=== PATIENT | female | born 1960 | race Caucasian/White ===

== ENCOUNTER → 2018-12-17 | Outpatient (CLI) | payer BC ==
[~2018-12-17] MED LIST: CELEXA40 MG PO; LISINOPRIL AND1 TA1 PO; LISINOPRIL AND1 TA2 PO; PRILOSEC 20MG20 MG PO; SYNTHROID0.125 MG/T PO; ZYRTEC1 MG/ML PO
== END ==
LOC: MC.RAD 11-13 11:00
DX: Z12.31 Encounter for screening mammogram for malignant neoplasm of breast (principal)

== ENCOUNTER → 2019-07-14 | Outpatient (CLI) | payer BC ==
[~2019-07-14] VITALS: Ht 162.6 cm; Wt 74.4 kg
[~2019-07-14] MED LIST changes: +LIPITOR20 MG PO; +SYNTHROID0.1 MG/TAB PO; +XANAX .25M0.25 MG/TA PO; +ZESTORETIC 12.51 TAB PO; +ZYRTEC 10MG10 MG PO; -ZYRTEC1 MG/ML PO
[2019-07-14 12:06] VITALS: BP 116/72; PULSE 86
[2019-07-14 13:20] VITALS: BP 112/67; PULSE 94
== END ==
LOC: COL.RAD 11:48
DX: K76.9 Liver disease, unspecified (principal); R59.0 Localized enlarged lymph nodes
CPT/HCPCS: 32108

== ENCOUNTER → 2019-07-27 | Outpatient (CLI) | payer BC | LOC: COL.VAS 07:45 | DX: C81.01 Nodular lymphocyte predominant Hodgkin lymphoma, lymph nodes of head, face, and neck (principal) ==

== ENCOUNTER 2019-08-11 23:12 | Emergency (ER) | payer BC ==
[~2019-08-11] VITALS: Ht 162.6 cm; Wt 76.4 kg
[2019-08-11 23:27] VITALS: TEMP 98.3
[2019-08-12] MEDS ORDERED: PRINZIDE 12.5 M1 TAB PO (00:01)
[2019-08-12] MEDS ORDERED: ZYLOPRIM 300MG300 MG PO (00:01)
[2019-08-12] MEDS ORDERED: CLARITIN 1010 MG/TAB PO (00:01)
[2019-08-12 00:04] LABS: ALBUMIN 3.3 gm/dL (3.5-5.0); BILIRUBIN,TOTAL 0.8 mg/dL (0.0-1.0); C-REACTIVE PROTEIN 4.5 mg/dL (0.0-0.9); CALCIUM 10.1 mg/dL (8.4-10.2); CREATININE, serum 1.02 (0.52-1.25); HEMOGLOBIN 11.1 g/dl (12.5-16.0); MAGNESIUM 1.8 mg/dL (1.6-2.3); MEAN CELL VOLUME 87 fl (80.0-100.0); MEAN CORPUSCULAR HEMOGLOBIN 28 pg (27.0-31.0); MEAN CORPUSCULAR HGB CONC 32 g/dl (33.0-37.0); MEAN PLATELET VOLUME 10.7 fl (7.4-10.4); PHOSPHOROUS 2.1 mg/dL (2.5-4.5); PLATELET COUNT 127 K/mm3 (130-400); RED BLOOD COUNT 3.97 M/mm3 (4.10-5.30); REDCELL DISTRIBUTION WIDTH-CV 14.7 % (11.5-14.5); TOTAL PROTEIN 6.2 gm/dL (6.4-8.2)
[2019-08-12 00:13] LABS: HEMATOCRIT 34.5 % (37.0-47.0)
[2019-08-12 01:02] LABS: BASOPHIL 5 % (0-2); EOSINOPHIL 10 % (0-4); HYPOCHROMIA 1+; LYMPHOCYTE 25 % (20.0-51.0); NEUTROPHILS 55 % (42.0-75.2); PLATELET ESTIMATE DECREASED (NORMAL)
[2019-08-12 02:30] LABS: COLLECTION METHOD CLEAN CATCH
[2019-08-12 02:36] LABS: MUCOUS Present /lpf; PH 7 (5-8); SQUAMOUS EPITHELIAL 0-2 /hpf; URINE APPEARANCE Clear; URINE BACTERIA None Seen /hpf; URINE BILIRUBIN Negative (NEGATIVE); URINE BLOOD Negative (NEGATIVE); URINE COLOR Yellow; URINE GLUCOSE Negative (NEGATIVE); URINE KETONE Negative (NEGATIVE); URINE LEUKOCYTE ESTERASE Negative (NEGATIVE); URINE NITRATE Negative (NEGATIVE); URINE PROTEIN(semi-quant) Negative (NEGATIVE); URINE RBC 0-2 /hpf; URINE UROBILINOGEN Negative (NEGATIVE)
[2019-08-12] MEDS ORDERED: ZOFRAN 4MG T4 MG/TAB PO (03:23)
[2019-08-12 03:56] VITALS: BP 114/70; PULSE 86
== END 2019-08-12 04:05 | disposition home or self-care (01) ==
LOC: COL.ER 23:12
PROVIDERS: Emergency Medicine
DX: E86.0 Dehydration (principal); R19.7 Diarrhea, unspecified; R10.84 Generalized abdominal pain; D72.819 Decreased white blood cell count, unspecified; Z85.71 Personal history of Hodgkin lymphoma
CPT/HCPCS: J1644; J2405; J3010; J7030; Q9967

== ENCOUNTER 2019-08-12 14:22 | Inpatient (IN) | payer BC ==
[~2019-08-12] VITALS: Ht 162.6 cm; Wt 73.8 kg
[~2019-08-12 14:22] MED LIST changes: +CLARITIN 1010 MG/TAB PO; +PRINZIDE 12.5 M1 TAB PO; +ZOFRAN 4MG T4 MG/TAB PO; +ZYLOPRIM 300MG300 MG PO
[2019-08-12 15:05] LABS: MEAN CELL VOLUME 87 fl (80.0-100.0); MEAN CORPUSCULAR HGB CONC 33 g/dl (33.0-37.0); MEAN PLATELET VOLUME 10.5 fl (7.4-10.4); PLATELET COUNT 117 K/mm3 (130-400); RED BLOOD COUNT 3.49 M/mm3 (4.10-5.30); REDCELL DISTRIBUTION WIDTH-CV 14.6 % (11.5-14.5)
[2019-08-12 15:08] LABS: HEMATOCRIT 30.2 % (37.0-47.0); HEMOGLOBIN 9.8 g/dl (12.5-16.0); MEAN CORPUSCULAR HEMOGLOBIN 28 pg (27.0-31.0)
[2019-08-12 15:13] LABS: ALBUMIN 3.1 gm/dL (3.5-5.0); C-REACTIVE PROTEIN 5.8 mg/dL (0.0-0.9); CREATININE, serum 0.91 (0.52-1.25); TOTAL PROTEIN 5.8 gm/dL (6.4-8.2)
[2019-08-12 15:48] LABS: EOSINOPHIL 4 % (0-4); LYMPHOCYTE 64 % (20.0-51.0); NEUTROPHILS 24 % (42.0-75.2); PLATELET ESTIMATE NORMAL (NORMAL)
[2019-08-12 18:20] VITALS: BP 99/50; PULSE 100; TEMP 99.7
--- NOTE | 2019-08-12 18:22 | NUR ---
Vancomycin Initial Dosing Pharmacy Note Ordering provider: Natalia Morillo MD Indication/duration: Neutropenic Fever Relevant comorbidities: LABS: 0.91, est Crcl of 60 mL/min Recommendation: 1.25 g IV q12h Loading dose: 1.5 grams Maintenance dose: 1.25 grams every 12 hours Trough goal: 15-20 ug/mL
--- NOTE | 2019-08-12 19:34 | NUR ---
Patient arrived to room from ER, is resting in bed, is wearing mask. Cart placed outside door for neutropenic precautions. Patient expresses she is tired. She has ordered tray with broth and saltines. Did let patient know we had other snacks, food or juices available if she felt like having anything else. Does have some abdominal cramping. Did pass gas and stated that helped some. Was assisted to restroom and walked slowly and steady, does state she frequently gets dizzy and agreed to call for assistance when getting up. Did call for medication for her nausea, order placed for EKG prior to med order.
[2019-08-12 19:46] VITALS: BP 118/55; PULSE 114; TEMP 103
--- NOTE | 2019-08-12 20:30 | NUR ---
Initial shift assessment done- resting, family at bedside, will give Tylenol for temp 103 , IV fluids of NS at 150cc/hr, will call for assistance to bathroom
[2019-08-13 00:47] VITALS: BP 108/50; PULSE 115; TEMP 103
[2019-08-13 01:21] LABS: COLLECTION METHOD CLEAN CATCH
[2019-08-13 01:26] LABS: MUCOUS Present /lpf; PH 5 (5-8); SQUAMOUS EPITHELIAL 0-2 /hpf; URINE APPEARANCE Clear; URINE BACTERIA None Seen /hpf; URINE BILIRUBIN Negative (NEGATIVE); URINE BLOOD Negative (NEGATIVE); URINE COLOR Yellow; URINE GLUCOSE 1+ (NEGATIVE); URINE KETONE Negative (NEGATIVE); URINE LEUKOCYTE ESTERASE Negative (NEGATIVE); URINE NITRATE Negative (NEGATIVE); URINE PROTEIN(semi-quant) Negative (NEGATIVE); URINE RBC 0-2 /hpf; URINE UROBILINOGEN Negative (NEGATIVE)
[2019-08-13 03:35] VITALS: BP 132/64; PULSE 96; TEMP 100.7
[2019-08-13 04:46] LABS: MEAN CELL VOLUME 86 fl (80.0-100.0); MEAN CORPUSCULAR HGB CONC 33 g/dl (33.0-37.0); MEAN PLATELET VOLUME 9.9 fl (7.4-10.4); PLATELET COUNT 98 K/mm3 (130-400); RED BLOOD COUNT 2.99 M/mm3 (4.10-5.30); REDCELL DISTRIBUTION WIDTH-CV 14.4 % (11.5-14.5)
[2019-08-13 04:50] LABS: CALCIUM 8.3 mg/dL (8.4-10.2); CREATININE, serum 0.81 (0.52-1.25); POTASSIUM 3.4 mmol/L (3.4-5.0)
[2019-08-13 05:03] LABS: HEMATOCRIT 25.6 % (37.0-47.0); HEMOGLOBIN 8.5 g/dl (12.5-16.0); MEAN CORPUSCULAR HEMOGLOBIN 28 pg (27.0-31.0)
[2019-08-13 05:26] LABS: BAND 12 % (0-10); EOSINOPHIL 6 % (0-4); LYMPHOCYTE 70 % (20.0-51.0); MICROCYTOSIS 1+; NEUTROPHILS 8 % (42.0-75.2); PLATELET ESTIMATE DECREASED (NORMAL)
--- NOTE | 2019-08-13 06:00 | NUR ---
Did not sleep last night- was up numerous,numerous times to the bathroom, having liquid green stool-did get specimen down to lab- GI panel all negative-was able to get immodium ordered for patient--pt states that did help the cramping ,, had fever 103 during the night- was given tylenol 650mg x2 during the shift- temp down to 100.7
[2019-08-13 07:20] VITALS: BP 114/63; PULSE 111; TEMP 102.7
--- NOTE | 2019-08-13 08:49 | NUR ---
Assessment completed, alert/oriented, vital signs stable/ still running intermittent fevers, reports abd cramping and tenderness, abdomen is soft and BS+, patient having frequent diarrhea through the night / c-diff negative/ started on Immodium and I have given a dose this morning, reports some nausea but no vomitting thus far, WBC 0.2 this morning/ Onc consulted and they have been by to eval patient/ Granix injection ordered and given, patient is on IV abx as well and in neutropenic p/c, lungs CTA/ no resp.difficulty noted, denies productive cough, heart RRR/distal pulses are palpable, we are replacing potassium per prtocol, patient overall is still feeling very poorly, her in present in the room, they deny othe needs at this time , we will continue to monitor
--- NOTE | 2019-08-13 11:38 | NUR ---
Initial visit attempt; Patient resting throughout the morning, Tobacco Stemmer left card letting her know of the availability of spiritual care at our hospital.
[2019-08-13 13:43] VITALS: BP 105/54; PULSE 111; TEMP 102.2
--- NOTE | 2019-08-13 14:20 | NUR ---
Plan is to return home. SW met with patient about DC plan. Patient gave permission to speak in front of ex-bf about care. Patient reports that she lives locally with her children. Patient reports that her ex-bf Sahil is his POA and EMR contact . Patient reports that she is having concerns about fainting and not being able to breath. Patient reports that her PCP is Dr. Bond with no upcoming apps. Patient idnciated that she does not use any DME's. Patient reports that her ex will transport home. Patient reports that she obtains her RX from [facility] without difficulty. Action: SW educated patient on Home health care services. Patient stated to let her think about it. Patient was educated on community resources also. Notified nursing staff of clients cocnerns. Nothing futher.
[2019-08-13 16:08] VITALS: BP 111/56; PULSE 117; TEMP 103.1
--- NOTE | 2019-08-13 19:05 | NUR ---
Bedside report received from SILVIA Gaxiola
--- NOTE | 2019-08-13 20:00 | NUR ---
Patient awake laying curled up in bed. Patient is alert and oriented. Has complaints of cramping abdominal pain mostly in the right upper quadrant rated 5/10. Medication to be provided. Assessment complete. Lungs are clear bilaterally in all presley. HR and rhythm are regular with normal S1 and S2 heard. Bowel sounds are active x4. Patient's abdomen is soft, but tender to the touch. Pulses are palpable in all extremities. No edema noted in extremities. There is a small amount of bruising where her port is accessed. Provided patient with a hot pack for her abdomen. She has no further needs at this time. Will continue to monitor. Call light within reach.
[2019-08-13 20:51] VITALS: BP 101/52; PULSE 105; TEMP 99.8
--- NOTE | 2019-08-14 00:20 | NUR ---
Patient awake at this time and requests to go to the restroom. Patient has another episode of diarrhea. Patient continues to have complaints of abdominal pain and says that tylenol helped. Medications provided. When medications were taken patient had an episode of nausea with dry heaves. Remained with patient, PRESTON Crane also at bedside. Left her with patient and pulled some zofran. Patient had stopped heaving by the time medication was given. Hot pack provided. Patient says she feels better now. Will continue to monitor. call light within reach.
[2019-08-14 00:41] VITALS: BP 100/48; PULSE 100; TEMP 101.2
[2019-08-14 04:35] VITALS: BP 119/67; PULSE 110; TEMP 100.9
[2019-08-14 06:25] LABS: MEAN CELL VOLUME 87 fl (80.0-100.0); MEAN CORPUSCULAR HGB CONC 31 g/dl (33.0-37.0); MEAN PLATELET VOLUME 10.4 fl (7.4-10.4); PLATELET COUNT 110 K/mm3 (130-400); RED BLOOD COUNT 2.86 M/mm3 (4.10-5.30); REDCELL DISTRIBUTION WIDTH-CV 14.5 % (11.5-14.5)
[2019-08-14 06:34] LABS: HEMATOCRIT 24.9 % (37.0-47.0); HEMOGLOBIN 7.8 g/dl (12.5-16.0); MEAN CORPUSCULAR HEMOGLOBIN 27 pg (27.0-31.0)
--- NOTE | 2019-08-14 07:15 | NUR ---
Patient is awake and alert sitting on the side of the bed. Was getting ready to go to the bathroom, states she is feeling pretty good at this time. No needs verbalized. Call light and personal items are within reach. Was noted to have finished a glass of water.
[2019-08-14 08:18] VITALS: BP 102/55; PULSE 107; TEMP 101.5
--- NOTE | 2019-08-14 09:15 | NUR ---
Patient has been utilizing hot packs for abdominal pain relief. Was taken k-pad and stated it was working well as she can control the temperature to what ever is comfortable at the time.
[2019-08-14 12:22] VITALS: BP 91/47; PULSE 90; TEMP 99.3
[2019-08-14 13:17] LABS: BAND 16 % (0-10); BASOPHIL 2 % (0-2); HYPOCHROMIA 1+; LYMPHOCYTE 32 % (20.0-51.0); NEUTROPHILS 24 % (42.0-75.2); PLATELET ESTIMATE NORMAL (NORMAL)
--- NOTE | 2019-08-14 18:07 | NUR ---
Patient is resting in bed, states she is currently comfortable on right side with k-pad on her abdomen. Has and other visitiors at bedside. Nausea has subsided with use of zofran earlier, has been able to take sips of water. No needs verbalized at this time. Call light and personal items are within reach.
[2019-08-14 19:43] VITALS: BP 112/66; PULSE 94; TEMP 98.9
--- NOTE | 2019-08-14 21:00 | NUR ---
Initial shift assessment done- requesting Tylenol for abd pain 01/17, after tylenol was given,pt was nauseated- did not vomit-Zofran was then given. Afebrile. IV of NS at 150cc/hr.
[2019-08-14 23:23] VITALS: BP 115/69; PULSE 80; TEMP 97.9
[2019-08-15 03:58] VITALS: BP 108/50; PULSE 88; TEMP 98.2
[2019-08-15 05:36] LABS: MEAN CELL VOLUME 88 fl (80.0-100.0); MEAN CORPUSCULAR HGB CONC 32 g/dl (33.0-37.0); MEAN PLATELET VOLUME 11.1 fl (7.4-10.4); PLATELET COUNT 138 K/mm3 (130-400); RED BLOOD COUNT 2.67 M/mm3 (4.10-5.30); REDCELL DISTRIBUTION WIDTH-CV 14.6 % (11.5-14.5)
[2019-08-15 05:44] LABS: HEMATOCRIT 23.6 % (37.0-47.0); HEMOGLOBIN 7.5 g/dl (12.5-16.0); MEAN CORPUSCULAR HEMOGLOBIN 28 pg (27.0-31.0)
--- NOTE | 2019-08-15 05:50 | NUR ---
Quiet night-- was medicated x2 with Zofran this shift for nausea,, Very little loose stool tonight, VSS, afebrile all shift
[2019-08-15 05:57] LABS: BAND 32 % (0-10); EOSINOPHIL 4 % (0-4); LYMPHOCYTE 22 % (20.0-51.0); NEUTROPHILS 28 % (42.0-75.2)
[2019-08-15 05:58] LABS: PLATELET ESTIMATE NORMAL (NORMAL)
[2019-08-15 08:30] VITALS: BP 110/52; PULSE 81; TEMP 98.5
--- NOTE | 2019-08-15 10:12 | NUR ---
Patient is awake and alert in bed. Did get up to the restroom and was able to manuver IV pole independently and did have a steady gait. Has some pain in the abdomen and states she is nauseated, requests zofran. Patient returned to bed. IV antibiotic administered and potassium is infusing. Patient stated she is sore to the right shoulder around the central line dressing. There is a blistered area observed directly next to the medipore edge of the dressing. Dressing was removed and replaced with a tegaderm. Patient states she will report if she develops any other areas of discomfort with the new dressing. Dr. Cervantes asked for patient to receive a dose of lomotil and immodium at this time. Patient requests to wait about 30 minutes so the zofran can take effect and she would be able to take medications without becoming more nauseated. She will call when her nausea subsides. No other issues reported. Call light and personal items are within reach.
--- NOTE | 2019-08-15 11:53 | NUR ---
Patient verbalizes that zofran is not releiving her nausea very well. Spoke with Dr. Cervantes and received order for phenergan.
[2019-08-15 13:00] VITALS: BP 115/74; PULSE 81; TEMP 98.2
[2019-08-15 15:53] VITALS: BP 117/74; PULSE 75; TEMP 98.8
--- NOTE | 2019-08-15 18:43 | NUR ---
Patient is resting with eyes closed, did request another dose of phenergan which was adminsitered. Patient also stated her mouth was dry and she found herself having to drink more water which she said wasnt a bad thing. She was curious if the chemo could cause that and planned on asking the oncologist about this. Did suggest her could get some gum or hard candy if she could tolerate.
[2019-08-15 19:36] VITALS: BP 115/64; PULSE 97; TEMP 98.2
[2019-08-15 23:37] VITALS: BP 93/60; PULSE 87; TEMP 98.1
[2019-08-16 04:08] VITALS: BP 119/65; PULSE 82; TEMP 98.7
[2019-08-16 06:10] LABS: MEAN CELL VOLUME 88 fl (80.0-100.0); MEAN CORPUSCULAR HGB CONC 32 g/dl (33.0-37.0); MEAN PLATELET VOLUME 10.6 fl (7.4-10.4); PLATELET COUNT 236 K/mm3 (130-400); REDCELL DISTRIBUTION WIDTH-CV 14.7 % (11.5-14.5)
[2019-08-16 06:14] LABS: HEMATOCRIT 23.8 % (37.0-47.0); HEMOGLOBIN 7.6 g/dl (12.5-16.0); MEAN CORPUSCULAR HEMOGLOBIN 28 pg (27.0-31.0)
[2019-08-16 06:25] LABS: CREATININE, serum 0.79 (0.52-1.25); MAGNESIUM 1.5 mg/dL (1.6-2.3); POTASSIUM 3.4 mmol/L (3.4-5.0)
--- NOTE | 2019-08-16 07:00 | NUR ---
Patient is awake in room, saw oncology this morning. Spoke with him regarding reported restless legs and dry mouth. Changes were made to nausea medications as he felt they were causing side effects. Call light and personal items are within reach.
[2019-08-16 07:05] VITALS: BP 122/66; PULSE 85; TEMP 97.6
[2019-08-16 07:45] LABS: BAND 40 % (0-10); EOSINOPHIL 1 % (0-4); NEUTROPHILS 43 % (42.0-75.2); NUCLEATED RED BLOOD CELL 1 (0-6); PLATELET ESTIMATE NORMAL (NORMAL)
[2019-08-16 07:46] LABS: DOHLE BODIES PRESENT; HYPOCHROMIA 2+; TOXIC GRANULATION PRESENT
[2019-08-16 07:47] LABS: ANISOCYTOSIS 1+
[2019-08-16 07:48] LABS: LYMPHOCYTE 5 % (20.0-51.0)
--- NOTE | 2019-08-16 08:48 | NUR ---
Pt has had a quiet night. SO at bedside until 2200. Up to BR indep. Steady gait. PORT in upper right chest. Request and given Phenergan 25mg IV x2 this shift. Early this morning started c/o bilat legs feeling like they are jumping all over on the inside. Pt reports that she took her own Tylenol that has been easier for her to swallow. Explained to her that we would have the Dr write an order for her to take her own and then have Pharmacy make a sticker to scan. Call light within reach.
--- NOTE | 2019-08-16 10:37 | NUR ---
Pt is feeling much improved today and has slowly been trying to eat small amounts of food she can tolerate. Her ANC today is much improved at 4233 with bands and neutrophils at 84%. She is still having multiple stools but feels is much improved over what had been occuring. It is her hope to try to get her intake to a better level and then be able to go home. Needs clear guidelines on what to report after next chemotherapy regarding pain, stools, temp, as feels she may have waited longer than she should have before calling to report issue.
--- NOTE | 2019-08-16 10:42 | NUR ---
Patient has been up to shower and room terminally cleaned for bed bugs. Has multiple small red bite mercedes to trunk and legs. Under breasts are red and has a yeasty odor. This was reported to providers and received order for medicated powder to apply and instructed to keep areas as dry as possible. She is observed to have a steady gait. Does require assistance around room as she has IV fluids and oxygen tubing connected. SHe is alert and oriented. Did inquire if we had any extra panties, was provided with briefs. She stated her bladder leaks occasionally. Call light and personal items are within reach.
[2019-08-16 11:44] VITALS: BP 118/79; PULSE 83; TEMP 98.2
[2019-08-16 17:18] VITALS: BP 122/73; PULSE 81; TEMP 97.4
[2019-08-16 19:14] VITALS: BP 128/72; PULSE 84; TEMP 98.9
--- NOTE | 2019-08-16 19:26 | NUR ---
Report given to oncoming shift. Call light and pesonal items are within reach.
--- NOTE | 2019-08-16 19:53 | NUR ---
In to round with off going nurse and pt request her Tylenol, Zofran and Benadryl. Several family members in room. States she had a good day. Hopes to go home tomorrow.
[2019-08-16 23:27] VITALS: BP 124/69; PULSE 81; TEMP 98.1
--- NOTE | 2019-08-17 00:53 | NUR ---
PT AWAKE AND SITTING ON EDGE OF BED VERY TEARFUL. STATES SHE CAN NOT GET TO SLEEP. AFRAID TO TAKE MED. DISCUSSED THE BENEFIT OF TAKING XANAX AT BEDTIME TO HELP GET SOME SLEEP. VISITED ABOUT ALL THAT IS GOING ON IN HER LIFE RIGHT NOW AND SHE AGREES THAT SHE DOES NEED TO GET HER REST AT NIGHT. TAKES XANAX AND WARM BLANKET GIVEN. BACK TO BED, STILL TEARFUL BUT STATES SHE FEELS BETTER AFTER TALKING. WILL CONTINUE TO MONITOR. CALL LIGHT WITHIN REACH.
[2019-08-17 03:40] VITALS: BP 109/58; PULSE 72; TEMP 97.6
[2019-08-17 06:09] LABS: MEAN CELL VOLUME 87 fl (80.0-100.0); MEAN CORPUSCULAR HGB CONC 33 g/dl (33.0-37.0); MEAN PLATELET VOLUME 9.9 fl (7.4-10.4); PLATELET COUNT 334 K/mm3 (130-400); RED BLOOD COUNT 2.74 M/mm3 (4.10-5.30); REDCELL DISTRIBUTION WIDTH-CV 15.2 % (11.5-14.5)
[2019-08-17 06:12] LABS: HEMATOCRIT 23.7 % (37.0-47.0); HEMOGLOBIN 7.8 g/dl (12.5-16.0); MEAN CORPUSCULAR HEMOGLOBIN 28 pg (27.0-31.0)
[2019-08-17 06:28] LABS: CALCIUM 7.7 mg/dL (8.4-10.2); CREATININE, serum 0.82 (0.52-1.25); MAGNESIUM 2.2 mg/dL (1.6-2.3); POTASSIUM 3.5 mmol/L (3.4-5.0)
--- NOTE | 2019-08-17 06:29 | NUR ---
Pt reports having the best sleep in several days. Feels much better today. No c/o at this time. Call light within reach.
[2019-08-17 07:19] VITALS: BP 122/81; PULSE 81; TEMP 97.8
[2019-08-17 07:37] LABS: BAND 37 % (0-10); DOHLE BODIES PRESENT; HYPOCHROMIA 2+; LYMPHOCYTE 8 % (20.0-51.0); METAMYELOCYTE 4 % (0-0); MYELOCYTE 13 % (0-0); NEUTROPHILS 29 % (42.0-75.2); NUCLEATED RED BLOOD CELL 1 (0-6); PLATELET ESTIMATE NORMAL (NORMAL)
[2019-08-17 08:39] LABS: PATHOLOGY DIFF REVIEW OK
--- NOTE | 2019-08-17 09:44 | NUR ---
ANC 5148 per today's lab.
--- NOTE | 2019-08-17 10:17 | NUR ---
Pt requesting K+ to be given IV instead of PO d/t nausea.
--- NOTE | 2019-08-17 10:43 | NUR ---
Pt drowsy this am but alert and oriented. Pt's daughter at bedside this am. Meds reviewed with pt and daughter per request. Pt felt like the Xanax given during the night knocked her out and was also wondering about behaviors yesterday evening as apparently she was very anxious and confused per pt and daughter. Pt rated pain now at 2/10 for headache and requested Tylenol that was brought in from home because the gel caps are easier to swallow. Pt on potassium protocol and K+ being replaced this am by IV per pt request instead of PO. Pt reported nauseas this am and PRN Zofran given to manage. Pt restin in bed now. Pt port access patent no infiltration or redness noted. Pt does have a blister above tegaderm and pt reports was from old tegaderm that was removed. Pt has call light in reach and denies needs.
[2019-08-17 11:12] VITALS: BP 129/76; PULSE 66; TEMP 98.2
[2019-08-17] MEDS ORDERED: ZOFRAN 4MG T4 MG/TAB PO (13:20)
--- NOTE | 2019-08-17 14:34 | NUR ---
The patient is to discharge back home today, 08/17. The patient had no other questions or concerns for SW, but did ask for SW's card. SW provided. No additional needs at this time.
--- NOTE | 2019-08-17 14:44 | NUR ---
Pt port deaccessed and flushed with NS and then 500 units Heparin. Pt tolerated without incident and no bleeding noted. Pt given discharge instructions and education on medication, appts. and diagnosis. Pt states understanding. Pt spouse present. Pt getting dressed and will be escorted out by aide via wheelchair. Pt has all belongings. Shilpi CONROY gave ok for pt to leave with receiving 30mEq of K+ IV and not the whole 60mEq. Pt denies needs at this time.
== END 2019-08-17 14:45 | disposition home or self-care (01) | DRG 809 ==
LOC: COL.ER 14:22 → MEDICAL 15:49
PROVIDERS: Emergency Medicine; Internal Medicine; Physician Assistant; ADMIT Family Medicine
DX: D70.9 Neutropenia, unspecified (principal); K52.1 Toxic gastroenteritis and colitis; C81.90 Hodgkin lymphoma, unspecified, unspecified site; C79.9 Secondary malignant neoplasm of unspecified site; E87.1 Hypo-osmolality and hyponatremia; R50.81 Fever presenting with conditions classified elsewhere; I10 Essential (primary) hypertension; E03.9 Hypothyroidism, unspecified; F32.9 Major depressive disorder, single episode, unspecified; F41.9 Anxiety disorder, unspecified; E78.5 Hyperlipidemia, unspecified; T45.1X5A Adverse effect of antineoplastic and immunosuppressive drugs, initial encounter; D64.9 Anemia, unspecified; D69.6 Thrombocytopenia, unspecified; E83.42 Hypomagnesemia; E87.6 Hypokalemia; Z79.890 Hormone replacement therapy
CPT/HCPCS: 99222-AI; 99231-AI; 99233-AI; 99239; A4216; A9284; J0692; J1200; J1447; J1644; J1650; J2405; J2550; J3370; J3475; J3480; J7030; J7050

== ENCOUNTER 2019-11-07 20:41 | Inpatient (IN) | payer BC ==
[~2019-11-07] VITALS: Ht 162.6 cm; Wt 66.3 kg
[2019-11-07] MEDS ORDERED: ZOFRAN 4MG T4 MG/TAB PO (21:39)
[2019-11-07 21:40] LABS: BASO % 0.4 % (0.0-2.0); EOS # 0.1 (0.0-0.7); EOS % 0.9 % (0-4.0); GRAN # 7.1 (1.4-6.5); GRAN % 77.5 % (42.2-75.2); LYMPH # 0.8 (1.2-3.4); LYMPH % 8.3 % (20.0-51.0); MEAN CELL VOLUME 91 fl (80.0-100.0); MEAN CORPUSCULAR HGB CONC 32 g/dl (33.0-37.0); MEAN PLATELET VOLUME 9.5 fl (7.4-10.4); MONO % 11.2 % (1.7-9.3); PLATELET COUNT 410 K/mm3 (130-400); RED BLOOD COUNT 3.25 M/mm3 (4.10-5.30); REDCELL DISTRIBUTION WIDTH-CV 17.3 % (11.5-14.5)
[2019-11-07 21:52] LABS: ALANINE AMINOTRANSFERASE 25 U/L (9-52); ALBUMIN 3.5 gm/dL (3.5-5.0); ALKALINE PHOSPHATASE 84 U/L (50-136); ANION GAP 8 mmol/L (7-16); AST,SGOT 25 U/L (15-37); BILIRUBIN,TOTAL 0.5 mg/dL (0.0-1.0); BLOOD UREA NITROGEN 11 mg/dL (7-17); C-REACTIVE PROTEIN 7.4 mg/dL (0.0-0.9); CARBON DIOXIDE 26 mmol/L (22-30); CHLORIDE 101 mmol/L (98-107); CREATININE, serum 0.76 (0.52-1.25); GLUCOSE 109 mg/dL (74-106); POTASSIUM 3.4 mmol/L (3.4-5.0); SODIUM 135 mmol/L (137-145); TOTAL PROTEIN 6.1 gm/dL (6.4-8.2)
[2019-11-07 22:02] LABS: TROPONIN-I < 0.012 ng/mL (0.000-0.035)
[2019-11-07 22:15] LABS: HEMOGLOBIN 9.5 g/dl (12.5-16.0); MEAN CORPUSCULAR HEMOGLOBIN 29 pg (27.0-31.0)
[2019-11-07 22:16] LABS: HEMATOCRIT 29.5 % (37.0-47.0)
[2019-11-07 22:44] LABS: COLLECTION METHOD CLEAN CATCH
[2019-11-07 23:01] LABS: BAND 1 % (0-10); LYMPHOCYTE 8 % (20.0-51.0); MYELOCYTE 1 % (0-0); NEUTROPHILS 75 % (42.0-75.2)
[2019-11-07 23:02] LABS: ANISOCYTOSIS 1+; PLATELET ESTIMATE INCREASED (NORMAL); POLYCHROMASIA 1+
[2019-11-07 23:05] LABS: MUCOUS Present /lpf; PH 5 (5-8); URINE APPEARANCE Hazy; URINE BACTERIA None Seen /hpf; URINE BILIRUBIN Negative (NEGATIVE); URINE BLOOD Negative (NEGATIVE); URINE CALCIUM OXALATE CRYSTAL Present /hpf; URINE COLOR Amber; URINE GLUCOSE Negative (NEGATIVE); URINE KETONE Negative (NEGATIVE); URINE LEUKOCYTE ESTERASE Trace (NEGATIVE); URINE NITRATE Negative (NEGATIVE); URINE PROTEIN(semi-quant) 1+ (NEGATIVE); URINE UROBILINOGEN Negative (NEGATIVE)
[2019-11-07 23:47] LABS: INR 1.1 (0.8-3.0); PROTHROMBIN TIME 13.1 SECONDS (9.7-12.8)
[2019-11-08] VITALS (537 sets, daily range): BP systolic 93–118; BP diastolic 57–72; PULSE 76–118; TEMP 98–102.9; O2SAT 64–100
--- NOTE | 2019-11-08 00:15 | NUR ---
Pt arrived to room 308, transferred per ED staff. Pt awake, a&o, cooperative c cares. Daughter at bedside. Pt denies pain or any other c/o at this time. PAC accessed to R chest, patent c good blood return. Tele in place. Pt/da oriented to room, unit policies et current POC. Questions invited et answered et both verbalize understanding. Denies needs at this time. Call light in reach. Will continue to admint process.
[2019-11-08] MEDS ORDERED: SYNTHROID0.125 MG/T PO (02:21)
[2019-11-08] MEDS ORDERED: CARAFATE S1 GM/10 ML PO (02:22)
--- NOTE | 2019-11-08 07:43 | NUR ---
0710: ROUNDING WITH WHIPPER NURSE. PATIENT C/O BEING VERY COLD AND SHIVERING. DRY HEAVING. SEE FLOWSHEET FOR FVS OBTAINED WITH TEMP 102.9 ORALLY. BP WNL. TACHYCARDIC 115-130. A/O X 4. SEE EMAR FOR TYLENOL ADMINISTERED. ZOFRAN ADMINISTERED @ APPROX 0530. DENIES NEEDING/WANTING FURTHER INTERVENTION FOR NAUSEA AT THIS TIME. RADIOLOGY TO TAKE PATIENT FOR ORDERED CT CHEST IN APPROX 15 MINUETS.
[2019-11-08 08:06] LABS: BASO # 0.1 (0.0-0.2); BASO % 0.4 % (0.0-2.0); EOS # 0.1 (0.0-0.7); EOS % 0.8 % (0-4.0); GRAN # 9.7 (1.4-6.5); GRAN % 84.8 % (42.2-75.2); LYMPH # 0.6 (1.2-3.4); LYMPH % 5.1 % (20.0-51.0); MEAN CELL VOLUME 94 fl (80.0-100.0); MEAN CORPUSCULAR HGB CONC 31 g/dl (33.0-37.0); MEAN PLATELET VOLUME 9.5 fl (7.4-10.4); MONO # 0.9 (0.1-0.6); MONO % 7.5 % (1.7-9.3); PLATELET COUNT 399 K/mm3 (130-400); RED BLOOD COUNT 3.22 M/mm3 (4.10-5.30); REDCELL DISTRIBUTION WIDTH-CV 17.5 % (11.5-14.5)
[2019-11-08 08:07] LABS: HEMATOCRIT 30.3 % (37.0-47.0); HEMOGLOBIN 9.3 g/dl (12.5-16.0); MEAN CORPUSCULAR HEMOGLOBIN 29 pg (27.0-31.0)
[2019-11-08 08:15] LABS: ALBUMIN 2.9 gm/dL (3.5-5.0); BILIRUBIN,TOTAL 0.4 mg/dL (0.0-1.0); CREATININE, serum 0.67 (0.52-1.25); POTASSIUM 4.1 mmol/L (3.4-5.0); TOTAL PROTEIN 5.4 gm/dL (6.4-8.2)
[2019-11-08] MEDS ORDERED: DULCOLAX STOOL100 MG PO (09:48)
[2019-11-08] MEDS ORDERED: PRILOTC PO (09:52)
--- NOTE | 2019-11-08 10:05 | NUR ---
SW met with the patient to discuss discharge plan. The patient lives alone in [place]. She states that her ex-, Arnav (ph#[phone]), is frequently in her home and helps her. She states her daughter, Carmen (ph#[phone]), is also very helpful. She reports independence with ADLs and does not have any DME. The patient's PCP is Dr. Candie Holly and she receives her medications at [facility]. She reports no difficulties obtaining her meds. The patient's DPOA-HC is in EMR. Her DPOA-HC is her ex-, Arnav. The patient states that this is correct. She states that she may have another one completed, which also lists her daughter. The patient plans to return home upon discharge. No additional needs as this time.
--- NOTE | 2019-11-08 11:30 | NUR ---
PATIENT TRANSFERRED TO ICU PER ORDER OF DR MULLEN FOR SVERE SEPSIS AND MORE INTENSE MONITORING. PATIENT AWARE OF TRANSFER AND AGREES WITH PLAN OF CARE. DAUGHTER AT BEDSIDE. PHONE REPORT GIVEN TO RECEIVING ERECTING CRANE OPERATOR. PATIENT TRANSFERRED VIA BED TO ICU 6. ACCOMPANIED BY THIS NURSE AND PCT. AT TRANSFER PATIENT A/O X 4. DENIES C/O PAIN. RECEIVING NURSE HAS NO QUESTIONS OR CONCERNS AT END OF PATIENT HAND OFF.
[2019-11-08 11:57] LABS: ARTERIAL BLD GAS O2 SATURATION 94.1 % (92-100); ARTERIAL BLD GAS TCO2 CT 19.1; ARTERIAL BLOOD GAS HCO3 18.3 meq/L (22-26); ARTERIAL BLOOD GAS PCO2 25.7 mmHg (35-45); ARTERIAL BLOOD GAS PO2 73.1 mmHg (80-100); ARTERIAL BLOOD GAS pH 7.47 (7.35-7.45)
--- NOTE | 2019-11-08 14:08 | NUR ---
PT TX TO ICU FROM MEDICAL UPDATE TO ICU STATUS, TEMP -100.2, OTHER VSS UPON ADMIT. LUNGS CLEAR, A/O X 3, DENIES ANY PAIN BUT DOES REPORT A SLIGHT TIGHTNESS IN CHEST BUT DENIES SHORTNESS OF BREATH. PT STATES SHE TOLD WHEN HE CAME TO ASSESS HER PRIOR TO TX, PT STATES THAT THE SLIGHT TIGHTNESS HAS IMPROVED PT RECIEVEING AX AND SOLUCORTEF AND REMAINS ON 3L NC WITH SPO2-97\98%. PT REQUESTED SOME ZOFRAN, AND COLACE, AND WAS GIVEN TYLENOL TO KEEP TEMP DOWN. PT INSTRUCTED THAT SPUTUM CX NEEDED. PT ABLE TO GET UP TO BEDSIDE COMMODE WITH STEADY GAIT. WILL CALL AND UPDATE ONCOLOGY OF ADMIT AND CONTINUE TO MONITOR AND UPDATE PROVIDERS NEEDED.
--- NOTE | 2019-11-08 14:33 | NUR ---
VOICE MESSAGE LEFT FOR DR. MONTANO' NURSE AND SPOKE TO LINING SETTER RE: PT ADMIT STATUS.
--- NOTE | 2019-11-08 15:09 | NUR ---
DR. MONTANO NOTIFIED ON PT ADMIT STATUS.
--- NOTE | 2019-11-08 19:15 | NUR ---
RECEIVED REPORT FROM SILVIA BRANCH. PT SITTING UP IN BED TALKING TO FAMILY AT BEDSIDE. NO ACUTE S/S OF DISTRESS NOTED. VSS. PT ON 2L VIA NC. CALL LIGHT WITHIN REACH.
--- NOTE | 2019-11-08 20:34 | NUR ---
SPOKE WITH DR MANDEL FROM [facility] ABOUT PT'S VS, CURRENT STATUS AND VBG RESULTS. SEE PROGRESS NOTE. NO ACUTE S/S OF DISTESS NOTED. VSS. NO NEW ORDERS.
[2019-11-09] VITALS (1133 sets, daily range): BP systolic 103–116; BP diastolic 69–79; PULSE 64–81; TEMP 97.6–98.8; O2SAT 42–100
[2019-11-09 06:19] LABS: MEAN CELL VOLUME 95 fl (80.0-100.0); MEAN CORPUSCULAR HGB CONC 31 g/dl (33.0-37.0); PLATELET COUNT 352 K/mm3 (130-400); RED BLOOD COUNT 2.84 M/mm3 (4.10-5.30); REDCELL DISTRIBUTION WIDTH-CV 17.2 % (11.5-14.5)
[2019-11-09 06:32] LABS: HEMATOCRIT 26.9 % (37.0-47.0); HEMOGLOBIN 8.4 g/dl (12.5-16.0); MEAN CORPUSCULAR HEMOGLOBIN 30 pg (27.0-31.0)
[2019-11-09 06:46] LABS: ALBUMIN 2.6 gm/dL (3.5-5.0); BILIRUBIN,TOTAL 0.2 mg/dL (0.0-1.0); CALCIUM 8.2 mg/dL (8.4-10.2); CREATININE, serum 0.58 (0.52-1.25); POTASSIUM 3.7 mmol/L (3.4-5.0); TOTAL PROTEIN 4.9 gm/dL (6.4-8.2)
[2019-11-09 07:26] LABS: BAND 26 % (0-10); BASOPHIL 1 % (0-2); LYMPHOCYTE 10 % (20.0-51.0); NEUTROPHILS 58 % (42.0-75.2)
[2019-11-09 07:27] LABS: MYELOCYTE 1 % (0-0); PLATELET ESTIMATE NORMAL (NORMAL)
--- NOTE | 2019-11-09 07:35 | NUR ---
DR MONTANO AT BEDSIDE FOR ASSESSMENT. ZOFRAN ORDER CHANGED, SEE MAR.
--- NOTE | 2019-11-09 13:49 | NUR ---
First visit from the cso. prayed with patient. No other needs right now.
--- NOTE | 2019-11-09 19:29 | NUR ---
CALLED AND UPDATED ON PTS OUTPUT AND STATUS. ORDER RECEIVED FOR AN ADDITONAL DOSE OF LASIX 20MG IV AT 2100.
[2019-11-10] VITALS (284 sets, daily range): BP systolic 107–132; BP diastolic 67–84; PULSE 64–80; TEMP 97.7–98.9; O2SAT 93–100
[2019-11-10 05:29] LABS: MEAN CELL VOLUME 93 fl (80.0-100.0); MEAN CORPUSCULAR HGB CONC 31 g/dl (33.0-37.0); MEAN PLATELET VOLUME 9.6 fl (7.4-10.4); PLATELET COUNT 364 K/mm3 (130-400); REDCELL DISTRIBUTION WIDTH-CV 17.2 % (11.5-14.5)
[2019-11-10 05:31] LABS: HEMATOCRIT 27.9 % (37.0-47.0); HEMOGLOBIN 8.7 g/dl (12.5-16.0); MEAN CORPUSCULAR HEMOGLOBIN 29 pg (27.0-31.0)
[2019-11-10 05:40] LABS: ALBUMIN 2.7 gm/dL (3.5-5.0); BILIRUBIN,TOTAL 0.3 mg/dL (0.0-1.0); CALCIUM 8.6 mg/dL (8.4-10.2); CREATININE, serum 0.68 (0.52-1.25); POTASSIUM 3.2 mmol/L (3.4-5.0)
[2019-11-10 06:55] LABS: ANISOCYTOSIS 2+; BAND 33 % (0-10); LYMPHOCYTE 2 % (20.0-51.0); METAMYELOCYTE 1 % (0-0); NEUTROPHILS 61 % (42.0-75.2); PLATELET ESTIMATE NORMAL (NORMAL)
--- NOTE | 2019-11-10 07:30 | NUR ---
gave bedside report to SILVIA Miller.
--- NOTE | 2019-11-10 13:35 | NUR ---
Report given to SILVIA Gaxiola. Pt transferred to medical room 308 acc by warehouse associate driver
--- NOTE | 2019-11-10 16:30 | NUR ---
patient arrived to room 352 at this time, alert/oriented, settled in bed and denies needs at this time, will continue to monitor
--- NOTE | 2019-11-10 20:00 | NUR ---
Received report from SILVIA Gaxiola. Assessment complete. C/O nausea. Denies any other pain or discomfort. Alert and oriented. Scheduled meds administere, pt refused carafate. Requested Tylenol and zofran. Portacath to RUC intact, dressing CDI, flushed. TANESHA PICC line intact, flushed, dressing CDI. Needs attended too. Call light within reach.
[2019-11-11 03:41] VITALS: BP 112/75; PULSE 71; TEMP 98
[2019-11-11 06:01] LABS: MEAN CELL VOLUME 93 fl (80.0-100.0); MEAN CORPUSCULAR HGB CONC 31 g/dl (33.0-37.0); MEAN PLATELET VOLUME 10.2 fl (7.4-10.4); PLATELET COUNT 397 K/mm3 (130-400); RED BLOOD COUNT 2.91 M/mm3 (4.10-5.30); REDCELL DISTRIBUTION WIDTH-CV 17.2 % (11.5-14.5)
--- NOTE | 2019-11-11 06:01 | NUR ---
Pt uneventful during this shift. Made no complaints. Call light within reach.
[2019-11-11 06:25] LABS: CALCIUM 8.9 mg/dL (8.4-10.2); CREATININE, serum 0.67 (0.52-1.25); MAGNESIUM 1.7 mg/dL (1.6-2.3); POTASSIUM 3.5 mmol/L (3.4-5.0)
[2019-11-11 06:29] LABS: HEMATOCRIT 27.1 % (37.0-47.0); HEMOGLOBIN 8.5 g/dl (12.5-16.0); MEAN CORPUSCULAR HEMOGLOBIN 29 pg (27.0-31.0)
--- NOTE | 2019-11-11 06:40 | NUR ---
Report given to SILVIA Gaxiola.
[2019-11-11 07:00] LABS: BAND 26 % (0-10); LYMPHOCYTE 4 % (20.0-51.0); METAMYELOCYTE 2 % (0-0); MYELOCYTE 1 % (0-0); NEUTROPHILS 66 % (42.0-75.2); OVALOCYTES 1+; PLATELET ESTIMATE NORMAL (NORMAL)
[2019-11-11 07:31] VITALS: BP 120/77; PULSE 70; TEMP 98.1
[2019-11-11 11:48] VITALS: BP 120/79; PULSE 104; TEMP 98.2
[2019-11-11 17:00] VITALS: BP 123/78; PULSE 77; TEMP 97.8
[2019-11-11 20:47] VITALS: BP 114/68; PULSE 84; TEMP 98.3
[2019-11-12 00:08] VITALS: BP 115/73; PULSE 73; TEMP 98.4
--- NOTE | 2019-11-12 02:25 | NUR ---
PATIENT DOING WELL TONIGHT. DENIES PAIN. TOOK SCHEDULED MEDICATIONS WITHOUT ISSUE. ALERT AND ORIENTED. R PICC PATENT AND FLUSHES WITH BLOOD RETURN. R PORTACATH CDI. NO FURTHER NEEDS AT THIS TIME. WILL CONTINUE TO MONITOR.
[2019-11-12 04:01] VITALS: BP 121/56; PULSE 80; TEMP 98.5
[2019-11-12 06:15] LABS: MEAN CELL VOLUME 94 fl (80.0-100.0); MEAN CORPUSCULAR HGB CONC 31 g/dl (33.0-37.0); MEAN PLATELET VOLUME 10.2 fl (7.4-10.4); PLATELET COUNT 356 K/mm3 (130-400); RED BLOOD COUNT 2.96 M/mm3 (4.10-5.30); REDCELL DISTRIBUTION WIDTH-CV 17.3 % (11.5-14.5)
[2019-11-12 06:32] LABS: CALCIUM 9.3 mg/dL (8.4-10.2); CREATININE, serum 0.65 (0.52-1.25); POTASSIUM 3.2 mmol/L (3.4-5.0)
[2019-11-12 06:47] LABS: HEMATOCRIT 27.9 % (37.0-47.0); HEMOGLOBIN 8.6 g/dl (12.5-16.0); MEAN CORPUSCULAR HEMOGLOBIN 29 pg (27.0-31.0)
--- NOTE | 2019-11-12 07:00 | NUR ---
Report received from SILVIA Burroughs. Pt in bed resting with eyes closed, awakens upon entry, denies needs, will conitnue to monitor.
[2019-11-12 07:58] LABS: BAND 12 % (0-10); LYMPHOCYTE 5 % (20.0-51.0); MYELOCYTE 4 % (0-0); NEUTROPHILS 74 % (42.0-75.2); NUCLEATED RED BLOOD CELL 3 (0-6)
[2019-11-12 07:59] LABS: ANISOCYTOSIS 1+; PLATELET ESTIMATE NORMAL (NORMAL)
[2019-11-12 08:03] VITALS: BP 119/66; PULSE 77; TEMP 99
--- NOTE | 2019-11-12 09:20 | NUR ---
Assessment charted. Pt in bed resting, feeling well, anticipating dishcarge today. Will give IV potassium through PICC in TANESHA that flushes well and good blood return. Upon completion will call PICC team to remove when completed. PAC to [facility], accessed. Pt denies pain, nausea meds given per schedule, will continue to monitor.
[2019-11-12] MEDS ORDERED: LEVAQUIN 750MG750 M1 PO (09:57)
--- NOTE | 2019-11-12 13:30 | NUR ---
Discharge teaching completed at this time. PAC heparinized and deaccessed. PICC to TANESHA removed from PICC team, education given. Reviewed discharge packet, pt agreeable, answered all questions. Pt escorted out via w/c with myself, left with all belongings. Criteria met.
[2019-11-12 13:33] VITALS: BP 128/79; PULSE 101; TEMP 98.3
--- NOTE | 2019-11-12 13:42 | NUR ---
The patient is to discharge back home today, 11/12. SW met with the patient to review discharge plan. The patient had no other questions or concerns for discharge. No additional needs at this time.
[2019-11-13 14:23] LABS: MYCOPLASMA IGM ANTIBODIES Negative (Negative)
== END 2019-11-12 13:30 | disposition home or self-care (01) | DRG 871 ==
LOC: COL.ER 20:41 → ICU 23:03 → SURG 23:03 → MEDICAL 23:04 → ICU 11-08 11:01 → MEDICAL 11-10 14:46
PROVIDERS: Emergency Medicine; Internal Medicine Critical Care Medicine; Nurse Practitioner Family; Physician Assistant; ADMIT Hospitalist
PROC: 02HV33Z Insertion of Infusion Device into Superior Vena Cava, Percutaneous Approach (ICD-10-PCS; principal; 2019-11-08)
DX: A41.9 Sepsis, unspecified organism (principal); J18.9 Pneumonia, unspecified organism; J96.01 Acute respiratory failure with hypoxia; D61.818 Other pancytopenia; C81.90 Hodgkin lymphoma, unspecified, unspecified site; E44.0 Moderate protein-calorie malnutrition; D72.829 Elevated white blood cell count, unspecified; T38.0X5A Adverse effect of glucocorticoids and synthetic analogues, initial encounter; E78.5 Hyperlipidemia, unspecified; E03.9 Hypothyroidism, unspecified; F41.9 Anxiety disorder, unspecified; F32.9 Major depressive disorder, single episode, unspecified; E87.6 Hypokalemia; T45.1X5A Adverse effect of antineoplastic and immunosuppressive drugs, initial encounter; Z98.51 Tubal ligation status
CPT/HCPCS: 99232-AI; 99233-AI; 99239; A4216; C1751; C1892; J0692; J1650; J1720; J1940; J1956; J2405; J3370; J3480; J7030; J7050; J7512; Q9967

== ENCOUNTER 2019-12-25 20:39 | Emergency (ER) | payer BC ==
[~2019-12-25] VITALS: Ht 162.6 cm; Wt 61.4 kg
[~2019-12-25 20:39] MED LIST changes: +CARAFATE S1 GM/10 ML PO; +DULCOLAX STOOL100 MG PO; +LEVAQUIN 750MG750 M1 PO; +PRILOTC PO
[2019-12-25 20:43] VITALS: TEMP 99
[2019-12-25 21:23] LABS: BASO % 0.4 % (0.0-2.0); EOS % 0.9 % (0-4.0); GRAN # 3.4 (1.4-6.5); GRAN % 73.6 % (42.2-75.2); LYMPH # 0.5 (1.2-3.4); LYMPH % 11.4 % (20.0-51.0); MEAN CELL VOLUME 81 fl (80.0-100.0); MEAN CORPUSCULAR HGB CONC 31 g/dl (33.0-37.0); MEAN PLATELET VOLUME 9.6 fl (7.4-10.4); MONO # 0.6 (0.1-0.6); MONO % 13.3 % (1.7-9.3); PLATELET COUNT 281 K/mm3 (130-400); REDCELL DISTRIBUTION WIDTH-CV 16.4 % (11.5-14.5)
[2019-12-25 21:27] LABS: ALBUMIN 3.5 gm/dL (3.5-5.0); BILIRUBIN,TOTAL 0.7 mg/dL (0.0-1.0); CALCIUM 10.7 mg/dL (8.4-10.2); CREATININE, serum 0.86 (0.52-1.25); POTASSIUM 3.7 mmol/L (3.4-5.0); TOTAL PROTEIN 6.5 gm/dL (6.4-8.2)
[2019-12-25 21:31] LABS: HEMATOCRIT 29.9 % (37.0-47.0); HEMOGLOBIN 9.2 g/dl (12.5-16.0); MEAN CORPUSCULAR HEMOGLOBIN 25 pg (27.0-31.0)
[2019-12-25 21:45] LABS: ARTERIAL BLD GAS O2 SATURATION 96.9 % (92-100); ARTERIAL BLD GAS TCO2 CT 23.5; ARTERIAL BLOOD GAS BASE EXCESS -0.1 (-2-2); ARTERIAL BLOOD GAS HCO3 22.6 meq/L (22-26); ARTERIAL BLOOD GAS PCO2 29.4 mmHg (35-45); ARTERIAL BLOOD GAS PO2 87.5 mmHg (80-100)
[2019-12-25 22:44] LABS: COLLECTION METHOD CLEAN CATCH
[2019-12-25 22:52] LABS: MUCOUS Present /lpf; PH 5 (5-8); SQUAMOUS EPITHELIAL 0-2 /hpf; URINE APPEARANCE Clear; URINE BACTERIA None Seen /hpf; URINE BILIRUBIN Negative (NEGATIVE); URINE BLOOD Negative (NEGATIVE); URINE COLOR Yellow; URINE GLUCOSE Negative (NEGATIVE); URINE KETONE Negative (NEGATIVE); URINE LEUKOCYTE ESTERASE Negative (NEGATIVE); URINE NITRATE Negative (NEGATIVE); URINE PROTEIN(semi-quant) Negative (NEGATIVE); URINE UROBILINOGEN Negative (NEGATIVE)
[2019-12-25] MEDS ORDERED: AMOXICILLIN 8751 TAB PO (23:04)
[2019-12-25] MEDS ORDERED: ZITHROMAX Z PA250 MG PO (23:04)
[2019-12-25 23:46] VITALS: BP 97/70; PULSE 89
== END 2019-12-25 23:51 | disposition home or self-care (01) ==
LOC: COL.ER 20:39
PROVIDERS: Family Medicine
DX: J18.9 Pneumonia, unspecified organism (principal); C81.90 Hodgkin lymphoma, unspecified, unspecified site
CPT/HCPCS: A4216; J0692; J1644; J7030

== ENCOUNTER 2020-01-11 13:00 | Outpatient (RCR) | payer BC ==
[~2020-01-11] VITALS: Ht 162.6 cm; Wt 58.0 kg
[2020-01-11] VITALS (9 sets, daily range): BP systolic 93–122; BP diastolic 59–77; PULSE 80–104; TEMP 98–98.9
[~2020-01-11 13:00] MED LIST changes: +AMOXICILLIN 8751 TAB PO; +ZITHROMAX Z PA250 MG PO
== END 2020-01-11 17:54 | disposition home or self-care (01) ==
LOC: EUO 13:00
DX: C83.39 Diffuse large B-cell lymphoma, extranodal and solid organ sites (principal); D70.1 Agranulocytosis secondary to cancer chemotherapy
CPT/HCPCS: J7050; P9037; P9040

== ENCOUNTER 2020-01-14 09:02 | Outpatient (RCR) | payer BC ==
[2020-01-14 10:20] VITALS: BP 112/77; PULSE 70; TEMP 98.7
[2020-01-14 10:39] VITALS: BP 119/80; PULSE 68; TEMP 98.5
[2020-01-14 10:54] VITALS: BP 111/72; PULSE 69; TEMP 98.5
[2020-01-14 11:17] VITALS: BP 118/80; PULSE 78; TEMP 98.7
[2020-01-14] MEDS ORDERED: COMPAZINE 110 MG/TAB PO (11:40)
[2020-01-14] MEDS ORDERED: ZOVIRAX800 MG (11:41)
[2020-01-14 11:47] VITALS: BP 106/74; PULSE 78; TEMP 98.8
== END 2020-01-14 11:55 | disposition home or self-care (01) ==
LOC: EUO 09:02
DX: C83.39 Diffuse large B-cell lymphoma, extranodal and solid organ sites (principal)
CPT/HCPCS: J7050; P9037

== ENCOUNTER 2020-04-19 13:00 | Outpatient (RCR) | payer BC ==
[2020-04-19] VITALS (13 sets, daily range): BP systolic 94–122; BP diastolic 64–89; PULSE 76–105; TEMP 97.9–99.1
[~2020-04-19] VITALS: Ht 162.6 cm; Wt 55.0 kg
[~2020-04-19 13:00] MED LIST changes: +COMPAZINE 110 MG/TAB PO; +ZOVIRAX800 MG PO
[2020-04-19] MEDS ORDERED: MIRALAX PA17 GM/Dose PO (13:11)
[2020-04-19] MEDS ORDERED: DAPSONE 100MG100 MG PO (13:11)
[2020-04-19] MEDS ORDERED: SENOKOT8.6 MG PO (13:12)
[2020-04-19] MEDS ORDERED: K-DUR 10 MEQ T10 MEQ PO (13:13)
== END 2020-04-19 18:00 | disposition home or self-care (01) ==
LOC: EUO 13:00
DX: C83.39 Diffuse large B-cell lymphoma, extranodal and solid organ sites (principal)
CPT/HCPCS: J7050; P9040

== ENCOUNTER 2020-07-08 21:53 | Inpatient (IN) | payer BC ==
[~2020-07-08] VITALS: Ht 160 cm; Wt 51.4 kg
[~2020-07-08 21:53] MED LIST changes: +DAPSONE 100MG100 MG PO; +K-DUR 10 MEQ T10 MEQ PO; +MIRALAX PA17 GM/Dose PO; +SENOKOT8.6 MG PO
[2020-07-08 23:28] LABS: MEAN CELL VOLUME 114 fl (80.0-100.0); MEAN CORPUSCULAR HGB CONC 32 g/dl (33.0-37.0); MEAN PLATELET VOLUME 10.5 fl (7.4-10.4); PLATELET COUNT 81 K/mm3 (130-400); RED BLOOD COUNT 1.79 M/mm3 (4.10-5.30); REDCELL DISTRIBUTION WIDTH-CV 13.8 % (11.5-14.5)
[2020-07-08 23:30] LABS: HEMATOCRIT 20.4 % (37.0-47.0); HEMOGLOBIN 6.6 g/dl (12.5-16.0); MEAN CORPUSCULAR HEMOGLOBIN 37 pg (27.0-31.0)
[2020-07-08 23:39] LABS: ALBUMIN 3.2 gm/dL (3.5-5.0); BILIRUBIN,TOTAL 0.7 mg/dL (0.0-1.0); CALCIUM 8.5 mg/dL (8.4-10.2); CREATININE, serum 0.96 (0.52-1.25); POTASSIUM 3.2 mmol/L (3.4-5.0); TOTAL PROTEIN 5.6 gm/dL (6.4-8.2)
[2020-07-09] VITALS (16 sets, daily range): BP systolic 89–116; BP diastolic 47–81; PULSE 56–111; TEMP 98.4–102.6
[2020-07-09 00:17] LABS: BAND 10 % (0-10); LYMPHOCYTE 72 % (20.0-51.0); NEUTROPHILS 8 % (42.0-75.2); PLATELET ESTIMATE DECREASED (NORMAL)
--- NOTE | 2020-07-09 02:23 | NUR ---
Pt admission procedure completed, alert, oriented, roomair, independent. Chest/respiration sound clear, no N/V/D, tingling, numbness, SOA, pain as per pt. Helped her settled on bed, call light on reach, no further needs at this time.
--- NOTE | 2020-07-09 04:22 | NUR ---
Blood transfusion started at 0412 am. Vitals are recorded and charted. Will remain with pt for the first 15 minutes. Pt is sleeping and has no complains.
--- NOTE | 2020-07-09 05:26 | NUR ---
Pt has blood running, checked vitals and recored, no any complications. Helped pt to go to the restroom, no further needs at this time.
--- NOTE | 2020-07-09 06:59 | NUR ---
Blood transfusion completed at around 0648 without any complications. Vitals are checked and recoded. Pt is sleeping. Will give report to the day nurse, who will resume further care.
[2020-07-09 08:12] LABS: MEAN CORPUSCULAR HGB CONC 33 g/dl (33.0-37.0); MEAN PLATELET VOLUME 10.2 fl (7.4-10.4); PLATELET COUNT 62 K/mm3 (130-400); RED BLOOD COUNT 2.21 M/mm3 (4.10-5.30); REDCELL DISTRIBUTION WIDTH-CV 17.2 % (11.5-14.5)
[2020-07-09 08:23] LABS: CALCIUM 8.3 mg/dL (8.4-10.2); CREATININE, serum 0.91 (0.52-1.25); POTASSIUM 3.2 mmol/L (3.4-5.0)
[2020-07-09 08:46] LABS: HEMATOCRIT 23.5 % (37.0-47.0); HEMOGLOBIN 7.7 g/dl (12.5-16.0); MEAN CELL VOLUME 106 fl (80.0-100.0); MEAN CORPUSCULAR HEMOGLOBIN 35 pg (27.0-31.0)
--- NOTE | 2020-07-09 09:37 | NUR ---
SW called patient's room to complete intake. Patient is currently on precautions. SW unable to get ahold of patient. Daughter Carmen [phone] was called to complete intake. Patient's daughter stated that patient lives alone in [place] and does not utilize any DME and is independent with ADL's. Daughter states that patient's PCP is Dr. Holly, and that patient is able to afford her medications at this time. Daughter stated that patient has Arnav Luna listed as DPOA-HC, but stated patient changed DPOA-HC when she was at another facility. Daughter stated patient will go back to her home or her home upon discharge and will not need any home health services at this time. SW to follow up on DPOA-HC when patient is able to. SW to continue to follow.
[2020-07-09 10:03] LABS: ANISOCYTOSIS 1+; LYMPHOCYTE 78 % (20.0-51.0); NEUTROPHILS 4 % (42.0-75.2); PLATELET ESTIMATE DECREASED (NORMAL)
[2020-07-09 13:35] LABS: MAGNESIUM 1.8 mg/dL (1.6-2.3); PHOSPHOROUS 2.9 mg/dL (2.5-4.5)
[2020-07-09 22:27] LABS: COLLECTION METHOD CLEAN CATCH
[2020-07-09 22:35] LABS: MUCOUS Present /lpf; PH 5 (5-8); SQUAMOUS EPITHELIAL 0-2 /hpf; URINE APPEARANCE Clear; URINE BACTERIA None Seen /hpf; URINE BILIRUBIN Negative (NEGATIVE); URINE BLOOD 1+ (NEGATIVE); URINE COLOR Yellow; URINE GLUCOSE Negative (NEGATIVE); URINE KETONE Negative (NEGATIVE); URINE LEUKOCYTE ESTERASE Negative (NEGATIVE); URINE NITRATE Negative (NEGATIVE); URINE PROTEIN(semi-quant) 2+ (NEGATIVE); URINE UROBILINOGEN Negative (NEGATIVE)
[2020-07-10 00:27] VITALS: BP 107/63; PULSE 102; TEMP 102.8
[2020-07-10 04:00] VITALS: BP 91/52; PULSE 65; TEMP 98.5
--- NOTE | 2020-07-10 05:10 | NUR ---
Patient has rested well throughout the night. Appears weak, but ambulates independently with slow, steady gait. Portacath accessed to right chest. At 0030 patient noted to spike a temperature of 102.8. PRN Tylenol administered. Patient's recheck temperature at 99.5. Temperature at 0500 noted to be 98.5. Urine specimen obtained and sent to lab. No bacteria noted. Continues on neutropenic precautions. Denies pain. Medications and antibiotics given per orders. Tolerates pills and fluids well. Denies any further needs. Will continue to monitor.
[2020-07-10 08:09] VITALS: BP 121/65; PULSE 95; TEMP 102.3
--- NOTE | 2020-07-10 09:32 | NUR ---
Assessment completed, alert/oriented, continue to spike intermittent fevers 102-103/ other vital signs stable, tylenol given to help reduce fever, denies pain or discomfort, heart RRR, lungs CTA, no reps.difficulty, patient did report some diarrhea that started this morning/ will collect sample to send off to lab, IV zosyn infusing now, patient is denies other needs at this time, will contiue to monitor
--- NOTE | 2020-07-10 10:23 | NUR ---
Initial visit; Patient thanked Drilling Superintendent for looking in on her, visiting and offering prayer. Patient thanked Drilling Superintendent for keeping her in Drilling Superintendent's prayers.
[2020-07-10 11:43] VITALS: BP 100/57; PULSE 62; TEMP 99
[2020-07-10 15:47] LABS: MEAN CELL VOLUME 103 fl (80.0-100.0); MEAN CORPUSCULAR HGB CONC 33 g/dl (33.0-37.0); MEAN PLATELET VOLUME 11.3 fl (7.4-10.4); PLATELET COUNT 59 K/mm3 (130-400); RED BLOOD COUNT 2.51 M/mm3 (4.10-5.30); REDCELL DISTRIBUTION WIDTH-CV 20.9 % (11.5-14.5)
[2020-07-10 15:48] LABS: CLOSTRIDIUM DIFF A/B NEG; CLOSTRIDIUM DIFF A/B INTERP No C.diff present
[2020-07-10 15:50] LABS: HEMOGLOBIN 8.6 g/dl (12.5-16.0); MEAN CORPUSCULAR HEMOGLOBIN 34 pg (27.0-31.0)
[2020-07-10 15:51] LABS: HEMATOCRIT 25.9 % (37.0-47.0)
[2020-07-10 15:54] LABS: CALCIUM 8.2 mg/dL (8.4-10.2); CREATININE, serum 0.94 (0.52-1.25); POTASSIUM 4.3 mmol/L (3.4-5.0)
[2020-07-10 16:03] VITALS: BP 106/62; PULSE 55; TEMP 98.5
[2020-07-10 16:39] LABS: LYMPHOCYTE 64 % (20.0-51.0); NEUTROPHILS 6 % (42.0-75.2)
[2020-07-10 16:42] LABS: PLATELET ESTIMATE DECREASED (NORMAL)
[2020-07-10 16:43] LABS: ANISOCYTOSIS 2+
[2020-07-10 16:45] LABS: OVALOCYTES 1+
[2020-07-10 20:04] VITALS: BP 131/65; PULSE 74; TEMP 100.2; TEMP 98.1
--- NOTE | 2020-07-10 21:35 | NUR ---
Pt. sitting up in bed at this time. Pt. is A&OX3, assessment complete. PORT to rt. chest patent. Pt. denies pain or other needs, call light within reach.
[2020-07-11] VITALS (7 sets, daily range): BP systolic 91–107; BP diastolic 56–65; PULSE 70–80; TEMP 98–99.8
--- NOTE | 2020-07-11 08:00 | NUR ---
Patient resting in bed at this time, patient rouses easily and is alert and oriented while awake. Patient denies pain or needs at this time, call light within reach.
[2020-07-11 11:34] LABS: MEAN CELL VOLUME 104 fl (80.0-100.0); MEAN CORPUSCULAR HGB CONC 33 g/dl (33.0-37.0); MEAN PLATELET VOLUME 10.9 fl (7.4-10.4); PLATELET COUNT 72 K/mm3 (130-400); RED BLOOD COUNT 2.71 M/mm3 (4.10-5.30); REDCELL DISTRIBUTION WIDTH-CV 19.9 % (11.5-14.5)
[2020-07-11 11:38] LABS: HEMATOCRIT 28.1 % (37.0-47.0); HEMOGLOBIN 9.2 g/dl (12.5-16.0); MEAN CORPUSCULAR HEMOGLOBIN 34 pg (27.0-31.0)
[2020-07-11 12:09] LABS: BAND 15 % (0-10); LYMPHOCYTE 54 % (20.0-51.0); NEUTROPHILS 18 % (42.0-75.2)
[2020-07-11 12:10] LABS: PLATELET ESTIMATE DECREASED (NORMAL)
--- NOTE | 2020-07-11 18:56 | NUR ---
Patient resting in bed at this time. Patient remains alert and oriented, answers questions appropriately. Patient denies pain or nausea. Patient reported a short episode of moderate chest pain directly related to IV administration of maxipime. Called pharmacist to check known adverse reactions, pharmacist states there is no documentation of vasospasms with this medication. Discussed this with qit and recieved VORB to administer this medication much more slowly next time to see if this helps patient tolerate it, if not to report it and medication will be changed; will pass this on to next shift. Patient denies further needs at this time, call light within reach.
--- NOTE | 2020-07-11 21:10 | NUR ---
Resting in bed. Assessment complete. Lungs clear. Heart sounds normal. Bowels active x4. Pulses present throughout. No edema noted. PAC flushed without complications. Denies pain at this time. Denies needs. Call light in reach.
--- NOTE | 2020-07-11 23:44 | NUR ---
Resting in bed. Denies pain. Denies needs. Call light in reach.
--- NOTE | 2020-07-11 23:49 | NUR ---
Patient tolerated maxipime well on bar pump
--- NOTE | 2020-07-12 01:57 | NUR ---
Resting in bed. Denies needs. Call light in reach.
[2020-07-12 01:58] VITALS: TEMP 99
[2020-07-12 04:00] VITALS: BP 114/65; PULSE 71; TEMP 98.5
--- NOTE | 2020-07-12 06:15 | NUR ---
Patient had uneventful night. Tolerated maxipime on a bar pump. Resting in bed this AM. Call light in reach.
[2020-07-12 06:25] LABS: MEAN CELL VOLUME 104 fl (80.0-100.0); MEAN CORPUSCULAR HGB CONC 32 g/dl (33.0-37.0); PLATELET COUNT 81 K/mm3 (130-400); RED BLOOD COUNT 2.79 M/mm3 (4.10-5.30); REDCELL DISTRIBUTION WIDTH-CV 19.1 % (11.5-14.5)
[2020-07-12 06:33] LABS: HEMATOCRIT 29.1 % (37.0-47.0); HEMOGLOBIN 9.3 g/dl (12.5-16.0); MEAN CORPUSCULAR HEMOGLOBIN 33 pg (27.0-31.0)
[2020-07-12 06:52] LABS: CALCIUM 8.5 mg/dL (8.4-10.2); MAGNESIUM 1.9 mg/dL (1.6-2.3); POTASSIUM 3.9 mmol/L (3.4-5.0)
--- NOTE | 2020-07-12 07:15 | NUR ---
Report given to SILVIA Xavier
--- NOTE | 2020-07-12 08:00 | NUR ---
Patient resting in bed at this time. Patient is alert and oriented, answers questions appropraitely. Patient denies pain or nausea, VS WNL. Patient denies needs, call light within reach.
[2020-07-12 08:05] VITALS: BP 97/61; PULSE 83; TEMP 98.4
[2020-07-12 08:20] LABS: BAND 14 % (0-10); HYPOCHROMIA 1+; LYMPHOCYTE 28 % (20.0-51.0); METAMYELOCYTE 2 % (0-0); MYELOCYTE 1 % (0-0); NEUTROPHILS 35 % (42.0-75.2); PLATELET ESTIMATE DECREASED (NORMAL)
[2020-07-12 08:21] LABS: SCHISTOCYTES 1+
--- NOTE | 2020-07-12 09:39 | NUR ---
SW attended clinical rounds. The patient is to discharge back home today, 07/12. [facility] followed up with the patient to review d/c plan. The patient reports that she has no concerns for SW about returning home. No additional needs at this time.
[2020-07-12] MEDS ORDERED: SPECTRACEF400 MG PO ×2 (09:45)
--- NOTE | 2020-07-12 11:48 | NUR ---
Discharge teaching completed. Discussed discharge appointments, discharge medication, and discharge instructions. Questions asked and answered. Port deaccessed per protocol, patient tolerated well. Patient escorted to admission entrance where she entered a private vehicle.
[2020-07-12] MEDS ORDERED: OMNICEF 300MG300 MG PO (16:08)
== END 2020-07-12 11:53 | disposition home or self-care (01) | DRG 809 ==
LOC: COL.ER 21:53 → JCC 23:53
PROVIDERS: Family Medicine; Internal Medicine; Nurse Practitioner Primary Care; Physician Assistant
DX: D70.9 Neutropenia, unspecified (principal); Z94.81 Bone marrow transplant status; R50.81 Fever presenting with conditions classified elsewhere; D64.9 Anemia, unspecified; F41.9 Anxiety disorder, unspecified; F32.9 Major depressive disorder, single episode, unspecified; I95.9 Hypotension, unspecified; E03.9 Hypothyroidism, unspecified; E87.6 Hypokalemia; R53.81 Other malaise; Z20.828 Contact with and (suspected) exposure to other viral communicable diseases; Z88.2 Allergy status to sulfonamides; Z85.71 Personal history of Hodgkin lymphoma; Z92.21 Personal history of antineoplastic chemotherapy
CPT/HCPCS: 99223-AI; 99232-AI; 99233-AI; 99239; G0378; J0692; J1447; J2543; J7030; J7120; P9016

== ENCOUNTER → 2021-08-24 | Outpatient (CLI) | payer BC ==
[~2021-08-24] MED LIST changes: +OMNICEF 300MG300 MG PO; +SPECTRACEF400 MG PO
== END ==
LOC: MC.RAD 08:33
DX: Z12.31 Encounter for screening mammogram for malignant neoplasm of breast (principal)